=== PATIENT | male | born 1955 | race Two or more races ===

== ENCOUNTER 2023-12-09 19:04 | Inpatient (IN) | payer OTHER ==
[2023-12-09] MEDS ORDERED: ACETAMINOPHEN 325 MG TABLET (FP) ONE (20:45)
[2023-12-09] MEDS: ACETAMINOPHEN 500 MG TABLET (FP) PO ONE (21:01)
[2023-12-09 23:00] LABS: BASO % 0.5 % (0-2.0); EOS % 0.5 % (0-4.5); HEMATOCRIT 44.5 % (35.4-49); LYMPH % 17.3 % (8-40); MCH 28.4 pg (25.7-33.7); MCHC 33.7 g/dl (32.0-35.9); MEAN CELL VOLUME 84.2 fl (80-96); MEAN PLT VOLUME 9.4 fl (7.5-11.1); NEUT % 74.7 % (42.8-82.8); PLATELET COUNT 242 10^3/uL (134-434); RBC 5.29 M/mm3 (4.00-5.60); RDW 13.9 % (11.9-15.9); WHITE BLOOD COUNT 10.1 K/mm3 (4.0-10.0)
[2023-12-09 23:07] LABS: INR 1.04 (0.83-1.09); PROTHROMBIN TIME (PATIENT) 11.7 SEC (9.7-13.0)
[2023-12-09 23:20] LABS: POTASSIUM 3.9 mmol/L (3.5-5.1)
[2023-12-09 23:22] LABS: BLOOD UREA NITROGEN 14.2 mg/dL (7-18); CALCIUM 8.9 mg/dL (8.5-10.1)
[2023-12-09 23:25] LABS: CREATININE 1.1 mg/dL (0.55-1.3)
[2023-12-09 23:27] LABS: BILIRUBIN,TOTAL 1.7 mg/dL (0.2-1); TOT PROT 7.4 g/dl (6.4-8.2)
[2023-12-10 04:23] VITALS: BMI 31.1
[2023-12-10 09:21] LABS: HEMATOCRIT 42.2 % (35.4-49); HEMOGLOBIN 14.6 GM/dL (11.7-16.9); MCH 29.1 pg (25.7-33.7); MCHC 34.6 g/dl (32.0-35.9); MEAN CELL VOLUME 84.1 fl (80-96); MEAN PLT VOLUME 9.9 fl (7.5-11.1); PLATELET COUNT 215 10^3/uL (134-434); RBC 5.02 M/mm3 (4.00-5.60); RDW 14.1 % (11.9-15.9); WHITE BLOOD COUNT 7.2 K/mm3 (4.0-10.0)
[2023-12-10 09:52] LABS: POTASSIUM 3.7 mmol/L (3.5-5.1)
[2023-12-10 10:02] LABS: ALBUMIN 3.5 g/dl (3.4-5.0); CALCIUM 8.9 mg/dL (8.5-10.1); MAGNESIUM 2.2 mg/dL (1.8-2.4)
[2023-12-10 10:05] LABS: CREATININE 0.9 mg/dL (0.55-1.3)
[2023-12-10 10:06] LABS: BILIRUBIN,TOTAL 1.8 mg/dL (0.2-1); TOT PROT 6.6 g/dl (6.4-8.2)
[2023-12-10] MEDS: ACETAMINOPHEN 1000 MG/100 ML BAG IVPB PRN (11:15)
[2023-12-10] MEDS ORDERED: ACETAMINOPHEN 325 MG TABLET (FP) PO PRN (11:20)
[2023-12-10 14:13] VITALS: BP 136/79; PULSE 77; RESP 18; TEMP 98.2
== END 2023-12-10 17:27 | disposition home or self-care (01) | DRG 93 ==
LOC: JER 19:04 → JERBED 23:47 → J7W 12-10 04:29 → OBSVTOIN 12-10 09:46
PROVIDERS: ADMIT Internal Medicine; ATTEND Nurse Practitioner
DX: G96.08 Other cranial cerebrospinal fluid leak (principal); S06.5X0S Traumatic subdural hemorrhage without loss of consciousness, sequela; X58.XXXA Exposure to other specified factors, initial encounter; Y92.098 Other place in other non-institutional residence as the place of occurrence of the external cause; Y99.9 Unspecified external cause status
CPT/HCPCS: 36415; 70450-TC; 72125-TC; 80053; 83735; 85025; 85027; 85610; 85730; 86850; 86900; 86901; 93005; 93010; 97116-GP; 97161-GP; 99285-25; G0378; J0131